=== PATIENT | female | born 2000 | race Caucasian/White ===

== ENCOUNTER 2021-12-12 04:27 | Emergency (ER) | payer OTHER ==
[~2021-12-12] VITALS: Ht 172.7 cm; Wt 67.0 kg
[2021-12-12] MEDS ORDERED: NEXP1IMP SC (05:09)
[2021-12-12 05:49] LABS: APPEARANCE, URINE CLEAR (CLEAR); BACTERIA, URINE AUTO NEGATIVE (NEGATIVE); BILIRUBIN, URINE AUTO NEGATIVE (NEGATIVE); BLOOD, URINE BLOOD NEGATIVE (NEGATIVE); COLOR, URINE COLORLESS (YELLOW); GLUCOSE, URINE (UA) AUTO NEGATIVE (NEGATIVE); KETONE, URINE AUTO NEGATIVE (NEGATIVE); LEUKOCYTE ESTERASE, URINE AUTO NEGATIVE (NEGATIVE); NITRITE, URINE AUTO NEGATIVE (NEGATIVE); PROTEIN, URINE AUTO NEGATIVE (NEGATIVE); RBC, URINE AUTO 0 /HPF (0-3); SPECIFIC GRAVITY URINE AUTO 1.001 (1.002-1.035); SQUAMOUS EPITHELIAL CELL UR AU 0 /HPF (0-6); UROBILINOGEN, URINE AUTO 0.2 mg/dL (0.0-2.0); WBC, URINE AUTO 0 /HPF (0-3)
[2021-12-12] MEDS ORDERED: ONDANSETRON 4MG/2ML VIAL IV ONE (08:10)
[2021-12-12] MEDS ORDERED: KETOROLAC 30 MG/ML 1ML VIAL IV ONE (08:10)
[2021-12-12] MEDS ORDERED: NS 1,000 ML IV ONE (08:10)
[2021-12-12 08:40] LABS: BASO # 0.1 10^3/uL (0.0-0.2); BASO % 1.1 % (0.0-1.0); EOS # 0.2 10^3/uL (0.0-0.5); EOS % 2.8 % (0.0-3.0); HEMATOCRIT 42.2 % (36.0-47.0); HEMOGLOBIN 14.3 g/dl (12.0-15.5); LYMPH % 42.3 % (24.0-44.0); MEAN CORPUSCULAR HEMOGLOBIN 29.5 pg (27.0-33.0); MEAN CORPUSCULAR HGB CONC 33.9 g/dl (32.0-36.5); MONO # 0.6 10^3/uL (0.0-0.8); MONO % 7.9 % (2.0-8.0); NEUTROPHILS # 3.2 10^3/uL (1.5-8.5); NEUTROPHILS % 45.3 % (36.0-66.0); PLATELET COUNT, AUTOMATED 228 10^3/uL (150-450); RED BLOOD COUNT 4.85 10^6/uL (4.00-5.40); WHITE BLOOD COUNT 7.1 10^3/uL (4.0-10.0)
[2021-12-12 09:01] LABS: ALBUMIN 3.9 GM/DL (3.2-5.2); ALT/SGPT 24 U/L (12-78); BILIRUBIN,DIRECT 0.1 MG/DL (0.0-0.2); BILIRUBIN,TOTAL 0.3 MG/DL (0.2-1.0); BLOOD UREA NITROGEN 6 MG/DL (7-18); CALCIUM LEVEL 8.9 MG/DL (8.5-10.1); CARBON DIOXIDE LEVEL 25 MEQ/L (21-32); CHLORIDE LEVEL 114 MEQ/L (98-107); CREATININE FOR GFR 0.66 MG/DL (0.55-1.30); GLOMERULAR FILTRATION RATE > 60.0 (>60); GLUCOSE, FASTING 83 MG/DL (70-100); LIPASE 133 U/L (73-393); POTASSIUM SERUM 4.2 MEQ/L (3.5-5.1); SODIUM LEVEL 147 MEQ/L (136-145); TOTAL PROTEIN 7.4 GM/DL (6.4-8.2)
[2021-12-12] MEDS ORDERED: MIRA3350 PO (10:23)
[2021-12-12] MEDS ORDERED: MAGNESIUM CITRATE 300 ML BTL PO ONE (10:25)
[2021-12-12 10:31] VITALS: BP 92/60
== END 2021-12-12 10:50 | disposition home or self-care (01) ==
LOC: M ED 04:27 → EDBD 04:27 → M ED 10:50
DX: K59.00 Constipation, unspecified (principal); Z91.040 Latex allergy status
CPT/HCPCS: 74018; 80048; 80076; 81001; 83690; 84702; 85025; 96361; 96374; 96375; 99284; J1885; J2405

== ENCOUNTER 2022-06-21 01:35 | Emergency (ER) | payer OTHER ==
[~2022-06-21] VITALS: Ht 172.7 cm; Wt 67.0 kg
[~2022-06-21 01:35] MED LIST: ETON68IM SC; MIRA3350 PO
[2022-06-21] MEDS ORDERED: LORazepam 2 MG/ML VIAL IV STA (01:45)
[2022-06-21] MEDS ORDERED: methylPREDNISolone 125MG 2ML VIAL IV ONE (01:45)
[2022-06-21 02:02] LABS: BASO # 0.1 10^3/uL (0.0-0.2); BASO % 0.6 % (0.0-1.0); EOS # 0.3 10^3/uL (0.0-0.5); EOS % 3.4 % (0.0-3.0); HEMATOCRIT 42.6 % (36.0-47.0); HEMOGLOBIN 14.2 g/dl (12.0-15.5); LYMPH # 5.1 10^3/uL (1.5-5.0); MEAN CORPUSCULAR HEMOGLOBIN 29.3 pg (27.0-33.0); MEAN CORPUSCULAR HGB CONC 33.3 g/dl (32.0-36.5); MEAN CORPUSCULAR VOLUME 87.8 fl (80.0-96.0); MONO # 0.6 10^3/uL (0.0-0.8); MONO % 6.3 % (2.0-8.0); NEUTROPHILS # 3.2 10^3/uL (1.5-8.5); NEUTROPHILS % 34.4 % (36.0-66.0); PLATELET COUNT, AUTOMATED 255 10^3/uL (150-450); RED BLOOD COUNT 4.85 10^6/uL (4.00-5.40); WHITE BLOOD COUNT 9.2 10^3/uL (4.0-10.0)
[2022-06-21 02:41] LABS: BLOOD UREA NITROGEN 9 MG/DL (7-18); CALCIUM LEVEL 9.2 MG/DL (8.5-10.1); CARBON DIOXIDE LEVEL 23 MEQ/L (21-32); CHLORIDE LEVEL 114 MEQ/L (98-107); CREATININE FOR GFR 0.88 MG/DL (0.55-1.30); ETHYL ALCOHOL (ETHANOL) 0.224 % (0.000-0.010); GLOMERULAR FILTRATION RATE > 60.0 (>60); GLUCOSE, FASTING 100 MG/DL (70-100); MAGNESIUM LEVEL 2.4 MG/DL (1.8-2.4); POTASSIUM SERUM 3.7 MEQ/L (3.5-5.1); SODIUM LEVEL 146 MEQ/L (136-145)
[2022-06-21] MEDS ORDERED: PEPC1TAB5 PO ×2 (03:19→03:20)
[2022-06-21] MEDS ORDERED: PRED20TA PO ×2 (03:19→03:20)
[2022-06-21] MEDS ORDERED: CETI10CH PO ×2 (03:19→03:20)
[2022-06-21 04:57] VITALS: BP 100/61
== END 2022-06-21 05:00 | disposition home or self-care (01) ==
LOC: M ED 01:35
DX: F10.129 Alcohol abuse with intoxication, unspecified (principal); T78.2XXA Anaphylactic shock, unspecified, initial encounter; R06.02 Shortness of breath; R21 Rash and other nonspecific skin eruption; Z91.040 Latex allergy status; Z79.899 Other long term (current) drug therapy
CPT/HCPCS: 80048; 82077; 83735; 85025; 96374; 96375; 99284; J2060; J2930